=== PATIENT | female | born 1955 ===

== ENCOUNTER 2024-02-24 06:29 | Day surgery (SDC) | payer OTHER ==
[2024-02-03 08:27] VITALS: BP 106/69
[2024-02-03 08:44] LABS: HEMATOCRIT 41.4 % (36.0-45.00); MEAN CELL VOLUME 95.2 fL (80.00-100.00); MEAN CORPUSCULAR HEMOGLOBIN 32.1 pg (27.00-32.0); MEAN CORPUSCULAR HGB CONC 33.7 g/dl (32.0-36.0); PLATELET COUNT 249 K/uL (150-450); RED BLOOD COUNT 4.35 M/uL (4.00-6.00); RED CELL DISTRIBUTION WIDTH 13.3 % (11.5-14.5)
[2024-02-03 08:47] LABS: PH,URINE 5.5 (5.0-8.0); URINE APPEARANCE Clear; URINE BILIRRUBIN Negative (NEGATIVE); URINE BLOOD Negative; URINE COLOR Yellow; URINE GLUCOSE Negative (NEGATIVE); URINE KETONE Negative (NEGATIVE); URINE LEUKOCYTE Trace; URINE NITRATE Negative; URINE PROTEIN Negative (NEGATIVE); URINE UROBILINOGEN 0.2 E.U./dl
[2024-02-03 08:50] LABS: URINE BACTERIA 179.7 uL (0.0-1933); URINE EPITHELIAL CELLS 8.5 uL (0.0-38.8); URINE RBC 2.7 uL (0.0-20.8); URINE WBC 19.3 uL (0.0-23.2)
[2024-02-03 08:53] LABS: URINE CAST 0.44 uL (0.0-1.40)
[2024-02-03 09:02] LABS: PARTIAL THROMBOPLASTIN TIME 28.2 SECONDS (22.0-34.0); PROTHROMBIN TIME 10.9 SECONDS (9.0-11.5)
[2024-02-03 09:52] LABS: ALBUMIN 4.3 gm/dL (3.4-5.0); BILIRUBIN TOTAL 0.69 mg/dL (0.3-1.2); CALCIUM 9.5 mg/dL (8.5-10.1); CREATININE SERUM 0.54 mg/dL (0.55-1.02); GFR 112.61; GLOBULINA 3.7 G/DL (2.4-3.5); POTASSIUM 3.43 mEq/L (3.5-5.1)
[~2024-02-24] VITALS: Ht 160 cm; Wt 76.7 kg
[~2024-02-24 06:29] MED LIST: ATORVASTATIN CA20 MG; ENALAPRIL-HCTZ1 EACH; GLIPIZIDE XL5 MG; HYDROCHLOROTHIAZIDE; JENTADUETO
[2024-02-24] MEDS ORDERED: CEFAZOLIN SODIUM 1,000 MG VIAL ONE (08:38)
[2024-02-24] MEDS ORDERED: POVIDONE-IODINE 118 ML BOTT TOP ONE (10:11)
[2024-02-24] MEDS ORDERED: CHLORHEXIDINE GLUCONATE 120 ML BOTTLE TOP ONE (11:00)
[2024-02-24] MEDS ORDERED: DOXYCYCLINE HY100 M2 PO (11:20)
[2024-02-24] MEDS ORDERED: TRAM1TAB98 PO (11:21)
[2024-02-24] MEDS ORDERED: MEPERIDINE HCL 25 MG/ML AMPUL IV ONE (12:25)
[2024-02-24 16:12] VITALS: BP 112/90; O2SAT 100
== END 2024-02-24 15:25 | disposition home or self-care (01) ==
LOC: CIR.AMB 06:29 → EDBD 07:30 → CIR.AMB 07:30
PROVIDERS: ATTEND Obstetrics & Gynecology
DX: D25.0 Submucous leiomyoma of uterus (principal); N95.0 Postmenopausal bleeding; N93.8 Other specified abnormal uterine and vaginal bleeding; N84.0 Polyp of corpus uteri; Z91.013 Allergy to seafood; Z88.6 Allergy status to analgesic agent; I10 Essential (primary) hypertension; J45.909 Unspecified asthma, uncomplicated; E10.9 Type 1 diabetes mellitus without complications; M19.90 Unspecified osteoarthritis, unspecified site; M79.7 Fibromyalgia